=== PATIENT | male | born 1990 | race American Indian/Alaskan Native ===

== ENCOUNTER 2020-01-25 19:26 | Emergency (ER) | payer OTHER ==
[2020-01-25 20:15] VITALS: BP 113/70
[2020-01-25] MEDS ORDERED: IBUPROFEN 600 MG TAB PO ONE (20:47)
[2020-01-25] MEDS ORDERED: ACETAMINOPHEN 500 MG TAB PO ONE (20:47)
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
== END 2020-01-25 22:30 | disposition home or self-care (01) ==
LOC: ED 19:26
DX: S20.212A Contusion of left front wall of thorax, initial encounter (principal); S43.402A Unspecified sprain of left shoulder joint, initial encounter; R07.89 Other chest pain; Z98.890 Other specified postprocedural states; V89.2XXA Person injured in unspecified motor-vehicle accident, traffic, initial encounter; Y93.89 Activity, other specified; Y92.410 Unspecified street and highway as the place of occurrence of the external cause; Y99.8 Other external cause status
CPT/HCPCS: 99283